=== PATIENT | female | born 1985 | race Caucasian/White ===

== ENCOUNTER 2016-08-28 13:56 | Emergency (ER) | payer BC, OTHER ==
[2016-08-28] MEDS ORDERED: PRENATAL TABLE1 EAC1 (14:00)
[2016-08-28 15:46] LABS: INFLUENZA A NEG (NEG); INFLUENZA B NEG (NEG)
== END 2016-08-28 16:25 | disposition home or self-care (01) ==
LOC: SED 13:56
PROVIDERS: Nurse Practitioner
DX: O99.512 Diseases of the respiratory system complicating pregnancy, second trimester (principal); J06.9 Acute upper respiratory infection, unspecified; Z3A.27 27 weeks gestation of pregnancy
CPT/HCPCS: 87651; 87804; 99283